=== PATIENT | female | born 1995 | race Asian ===

== ENCOUNTER 2016-11-05 17:18 | Emergency (ER) | payer OTHER, MEDICAID ==
[~2016-11-05] VITALS: Ht 157.5 cm; Wt 86.4 kg
[~2016-11-05 17:18] MED LIST: NOCURR
[2016-11-05] MEDS ORDERED: LIDOCAINE HCL/PF 1% 2 ML VIAL IM ONE (18:15)
[2016-11-05] MEDS ORDERED: CefTRIAXone SODIUM 1 GM/VIAL IM ONE (18:15)
[2016-11-05 19:33] VITALS: BP 129/77
== END 2016-11-05 19:33 | disposition home or self-care (01) ==
LOC: EMS 17:20
DX: J06.9 Acute upper respiratory infection, unspecified (principal); J02.8 Acute pharyngitis due to other specified organisms; B97.89 Other viral agents as the cause of diseases classified elsewhere; L03.011 Cellulitis of right finger
CPT/HCPCS: 96372; 99283; J0696; J3490